=== PATIENT | male | born 1985 | race Caucasian/White ===

== ENCOUNTER 2020-06-04 20:41 | Emergency (ER) | payer MEDICAID ==
[~2020-06-04] VITALS: Ht 190.5 cm; Wt 74.6 kg
[2020-06-04 21:53] LABS: BASOPHILS % (AUTO) 0 % (0-1); EOSINOPHILS % (AUTO) 1 % (1-7); LYMPHOCYTES % (AUTO) 26 % (22-44); MEAN CORPUSCULAR HEMOGLOBIN 29.7 pg (27.5-34.5); MEAN CORPUSCULAR HGB CONC 34.4 g/dL (33.2-36.2); MEAN PLATELET VOLUME 8.7 fL (7.4-10.4); MONOCYTES % (AUTO) 11 % (2-9); NEUTROPHILS % (AUTO) 62 % (42-75); PLATELET COUNT 250 x10^3/uL (130-400); RED BLOOD COUNT 5.42 x10^6/uL (4.38-5.82); RED CELL DISTRIBUTION WIDTH 13.5 % (9.4-14.8)
[2020-06-04 21:58] LABS: ALBUMIN 4.5 g/dL (3.4-5.0); ANION GAP 7 mmol/L (5-15); CALCIUM 9.2 mg/dL (8.5-10.1); CHLORIDE 106 mmol/L (98-107)
[2020-06-04 22:04] LABS: ALANINE AMINOTRANSFERASE 20 U/L (12-78); ALKALINE PHOSPHATASE 81 U/L (45-117); BILIRUBIN,TOTAL 0.8 mg/dL (0.2-1.0); CREATININE 1.12 mg/dL (0.7-1.3); TOTAL PROTEIN 7.7 g/dL (6.4-8.2); TROPONIN I < 0.015 ng/mL (0.000-0.045)
[2020-06-04 22:17] LABS: MD NO
[2020-06-04 23:10] VITALS: BP 130/80
--- NOTE | 2020-06-04 23:10 | NUR ---
PER TRIAGE TECH, PT WAS AWOKE FROM SLEEP IN THE WAITING ROOM AT 2245 AND TRANSFER TO ROOM AT THAT TIME. PT LAYING IN BED, NADN. MENCHACA.
== END 2020-06-04 23:21 | disposition home or self-care (01) ==
LOC: ED 23:19
DX: R56.9 Unspecified convulsions (principal); R07.89 Other chest pain; R94.31 Abnormal electrocardiogram [ECG] [EKG]; Z72.9 Problem related to lifestyle, unspecified
CPT/HCPCS: 36415; 71045; 80053; 84484; 85025; 93005; 99285

== ENCOUNTER 2020-08-20 03:35 | Emergency (ER) | payer MEDICAID ==
[~2020-08-20] VITALS: Ht 190.5 cm; Wt 80.0 kg
[2020-08-20] MEDS ORDERED: ONDANSETRON ODT 4 MG ONE (03:55)
[2020-08-20] MEDS ORDERED: ONDANSETRON ODT 4 MG PO ONE (04:00)
--- NOTE | 2020-08-20 04:04 | NUR ---
pt bib remsa for abdominal pain and nausea, pt reports vomitting three times today. denies any other symptoms. resting on gurney at this time, bed in lwoest, provided warm blankets for comfort, nad, denies additional needs, rails engaged, call light on lap, wctm. pt placed on spo2/bp monitoring, medicated per aug, waiting for lab results.
[2020-08-20 04:19] LABS: ALANINE AMINOTRANSFERASE 22 U/L (12-78); ANION GAP 9 mmol/L (5-15); CHLORIDE 108 mmol/L (98-107)
[2020-08-20 04:22] LABS: ALKALINE PHOSPHATASE 88 U/L (45-117); BASOPHILS % (AUTO) 0 % (0-1); BILIRUBIN,TOTAL 1.6 mg/dL (0.2-1.0); CREATININE 1.19 mg/dL (0.7-1.3); EOSINOPHILS % (AUTO) 0 % (1-7); LYMPHOCYTES % (AUTO) 3 % (22-44); MEAN CORPUSCULAR HEMOGLOBIN 28.8 pg (27.5-34.5); MEAN CORPUSCULAR HGB CONC 34.3 g/dL (33.2-36.2); MEAN PLATELET VOLUME 8.8 fL (7.4-10.4); MONOCYTES % (AUTO) 3 % (2-9); NEUTROPHILS % (AUTO) 94 % (42-75); PLATELET COUNT 228 x10^3/uL (130-400); RED BLOOD COUNT 5.33 x10^6/uL (4.38-5.82); TOTAL PROTEIN 7.2 g/dL (6.4-8.2)
[2020-08-20 04:26] LABS: MD NO
[2020-08-20] MEDS ORDERED: MAALOX/HYOSCYAMINE/LIDOCAINE 45 ML BTL ONE (04:57)
[2020-08-20] MEDS ORDERED: MAALOX/HYOSCYAMINE/LIDOCAINE 45 ML BTL PO ONE (05:00)
--- NOTE | 2020-08-20 05:05 | NUR ---
pt medicated per mar and provided fluids, states "i still dont feel well". rn explained poc to pt, pt appears nad, vss, bed in lowest, rails engaged, call light on lap, wctm.
[2020-08-20 06:01] VITALS: BP 107/74
--- NOTE | 2020-08-20 06:02 | NUR ---
Patient given discharge instructions and they have confirmed that they understand the instructions. Patient ambulatory with steady gait. nad, denies additional questions, provided water per request, provided taxi voucher, no personal belongings left in room after dc.
== END 2020-08-20 06:03 | disposition home or self-care (01) ==
LOC: ED 04:04
DX: K29.00 Acute gastritis without bleeding (principal); R11.2 Nausea with vomiting, unspecified; R51.9 Headache, unspecified; M32.9 Systemic lupus erythematosus, unspecified; Z72.9 Problem related to lifestyle, unspecified
CPT/HCPCS: 36415; 80053; 83690; 85025; 99283; Q0162

== ENCOUNTER 2020-09-09 13:45 | Emergency (ER) | payer MEDICAID ==
[~2020-09-09] VITALS: Ht 190.5 cm; Wt 76.6 kg
--- NOTE | 2020-09-09 14:10 | NUR ---
PT AMBULATED FROM TRIAGE WITH A STEADY GAIT. SOCKS PROVIDED TO PT DUE TO OPEN WOUNDS. PT HERE FOR THOUGHTS OF SUICIDE WITHOUT SPECIFIC PLAN. PT HAS HX OF SI. PT IS VERY POLITE AND PLEASENT. ROOM SECURED, GOWN AND BLANKETS PROVIDED. PT EDUCATED ON NEED FOR UA. WATER PROVIDED TO FACILITATE. AT THIS TIME PROVIDER COMPLETED ASSESMENT AND FRANCINE IS AT BEDSIDE.
--- NOTE | 2020-09-09 14:20 | NUR ---
REPORT TO WOO LEUNG
--- NOTE | 2020-09-09 14:21 | NUR ---
[employer] CONSISTING OF PANTS AND SHIRT PLACED IN BAG AND IN RM 3 BIN
[2020-09-09 14:31] LABS: BASOPHILS % (AUTO) 1 % (0-1); EOSINOPHILS % (AUTO) 1 % (1-7); LYMPHOCYTES % (AUTO) 16 % (22-44); MEAN CORPUSCULAR HEMOGLOBIN 28.7 pg (27.5-34.5); MEAN CORPUSCULAR HGB CONC 33.8 g/dL (33.2-36.2); MEAN PLATELET VOLUME 8.2 fL (7.4-10.4); MONOCYTES % (AUTO) 8 % (2-9); NEUTROPHILS % (AUTO) 75 % (42-75); PLATELET COUNT 253 x10^3/uL (130-400); RED BLOOD COUNT 4.88 x10^6/uL (4.38-5.82); RED CELL DISTRIBUTION WIDTH 13.9 % (9.4-14.8)
[2020-09-09 14:37] LABS: MD NO
[2020-09-09 14:42] LABS: ALBUMIN 3.6 g/dL (3.4-5.0); ANION GAP 7 mmol/L (5-15); CALCIUM 8.6 mg/dL (8.5-10.1); CHLORIDE 110 mmol/L (98-107); CREATININE 0.94 mg/dL (0.7-1.3); SALICYLATE LEVEL < 1.7 mg/dL (2.8-20.0)
--- NOTE | 2020-09-09 14:56 | NUR ---
THROUGHPUT RN: SPOKE W/ SHIN IN [facility] WHO STATES SHE IS WAITING FOR HER PSYCHIATRIST TO ASSESS PT CHART. STATES TO SEND OUT REFERRAL.
[2020-09-09 15:46] LABS: MICROSCOPIC NOT IND
[2020-09-09 15:58] LABS: AMPHETAMINE SCREEN, URINE Negative (Negative); BARBITURATE SCREEN, URINE Negative (Negative); BENZODIAZEPINE SCREEN, URINE Negative (Negative); CANNABINOID SCREEN, URINE Negative (Negative); COCAINE SCREEN, URINE Negative (Negative); METHADONE SCREEN, URINE Negative (Negative); OPIATE SCREEN, URINE Negative (Negative)
--- NOTE | 2020-09-09 16:01 | NUR ---
pt resting in bed. sitter at bedside
--- NOTE | 2020-09-09 17:07 | NUR ---
SPOKE WITH GERMÁN ON U TO REFER PT. PER GERMÁN, "THEY WILL LOOK INTO IT."
--- NOTE | 2020-09-09 17:10 | NUR ---
BREAK RN: PT RESTING IN ROOM. NO ACUTE DISTRESS NOTED. SITTER AT DOOR. WILL CONTINUE TO MONITOR WHILE PRIMARY RN IS ON BREAK.
--- NOTE | 2020-09-09 17:34 | NUR ---
THROUGHPUT RN: [facility], AND [facility].
--- NOTE | 2020-09-09 17:42 | NUR ---
BREAK RN: REPORT GIVEN TO XOCHITL BERKOWITZ
--- NOTE | 2020-09-09 18:05 | NUR ---
THROUGHPUT RN: RBLanre DECLINED PT SECONDARY TO BEING CONSIDERED SELF PAY/FEE FOR SERVICE.
--- NOTE | 2020-09-09 18:16 | NUR ---
PT IN BED NO DISTRESS. ATE MEAL
--- NOTE | 2020-09-09 18:20 | NUR ---
THROUGHPUT RN: [facility] IS CURRENTLY FULL. WILL ASSESS PT FOR ACCEPTANCE TOMORROW.
--- NOTE | 2020-09-09 18:24 | NUR ---
THROUGHPUT RN: SPOKE W/ JOIDE AT [facility] WHO STATES PT WOULD BE SELF PAY FEE FOR SERVICE. DECLINED BY [facility].
--- NOTE | 2020-09-09 18:27 | NUR ---
THROUGHPUT RN: SPOKE W/ ROSANA AT [facility] WHO STATES THEY WILL REVIEW HIS CHART. STATES NOTHING WILL HAPPEN UNTIL TOMORROW.
--- NOTE | 2020-09-09 19:35 | NUR ---
PT IN BED. VSS.
--- NOTE | 2020-09-09 21:27 | NUR ---
SPOKE WITH [facility] SUP REGARDING PT ADMISSION. [facility] CONTACTED MD, AWAITING APPROVAL FOR ADMISSION TO [facility]
--- NOTE | 2020-09-09 23:29 | NUR ---
Pt calm in bed. VS taken, warm blanket given. Pt with no changes. Pt with no requests. Sitter outside room. Will continue to monitor.
--- NOTE | 2020-09-09 23:41 | NUR ---
SPOKE WITH U; U MD HAS REQUESTED TO RE-EVALUATE PT IN MORNING FOR ADMISSION. PT WILL NOT BE ADMITTED TO U AT THIS MOMENT.
--- NOTE | 2020-09-10 00:29 | NUR ---
Pt resting calmly in room. No changes. Pt free of harm. Sitter outside room. Will monitor.
[2020-09-10 03:38] VITALS: BP 111/74
--- NOTE | 2020-09-10 03:39 | NUR ---
Pt calm in room. Flat affect. Denies the need for anything. Pt free of harm. Pt states he still has has feelings of harming himself. Sitter outside room.
--- NOTE | 2020-09-10 06:04 | NUR ---
Pt resting, no changes. Calm in bed. Pt Free of Harm. Sitter outside room.
--- NOTE | 2020-09-10 06:55 | NUR ---
REPORT FROM JUANY, PT SLEEPING
--- NOTE | 2020-09-10 07:47 | NUR ---
PT SLEEPING, SITTER PRESENT. BREAKFAST TRAY ORDERED.
--- NOTE | 2020-09-10 08:49 | NUR ---
GAVE PT MEAL TRAY. SITTER PRESENT
--- NOTE | 2020-09-10 09:45 | NUR ---
PT AMBULATED TO BATHROOM. OFFERED SHOWER, PT REFUSED. SITTER PRESENT
--- NOTE | 2020-09-10 10:27 | NUR ---
THROUGH PUT RN: RECEIVED MESSAGE FROM [facility], "WILL BE ADMITTING HIM" REQUEST COVID SWAB. PRIMARY RN NOTIFIED.
--- NOTE | 2020-09-10 11:17 | NUR ---
RAPID COVID SWAB COMPLETED.
--- NOTE | 2020-09-10 11:47 | NUR ---
REPORT TO KELLY AT [facility]. PT READY FOR TRANSFER
--- NOTE | 2020-09-10 12:03 | NUR ---
[facility] TRANSFERRED W PATIENT. PT TO [facility] VIA WHEELCHAIR
[2020-09-10] MEDS ORDERED: OMEP20CA20 PO (14:21)
[2020-09-10] MEDS ORDERED: LITH450T PO (14:21)
[2020-09-10] MEDS ORDERED: COLC0.6T50 PO (14:21)
[2020-09-10] MEDS ORDERED: QUET200T79 PO (14:21)
== END 2020-09-10 12:05 | disposition other institution (70) ==
LOC: ED 14:57
DX: R45.851 Suicidal ideations (principal); Z20.822 Contact with and (suspected) exposure to COVID-19; F32.9 Major depressive disorder, single episode, unspecified
CPT/HCPCS: 36415; 80048; 80299; 80307; 80320; 80329; 81003; 82040; 85025; 87426; 99285; G0480

== ENCOUNTER 2020-09-10 10:48 | Inpatient (IN) | payer MEDICAID ==
[~2020-09-10] VITALS: Ht 190.5 cm; Wt 74.0 kg
[2020-09-10] MEDS ORDERED: ACETAMINOPHEN 325 MG TABLET PO PRN (11:30)
[2020-09-10] MEDS ORDERED: ONDANSETRON ODT 4 MG PO PRN (11:30)
[2020-09-10] MEDS ORDERED: PLEASE ENTER HEIGHT AND WEIGHT MC SCH (12:30)
[2020-09-10 13:13] VITALS: BP 122/64
[2020-09-10] MEDS ORDERED: LITH450T PO (14:21)
[2020-09-10] MEDS ORDERED: COLC0.6T50 PO (14:21)
[2020-09-10] MEDS ORDERED: OMEP20CA20 PO (14:21)
[2020-09-10] MEDS ORDERED: QUET200T79 PO (14:21)
[2020-09-10] MEDS: LAMOTRIGINE 25 MG TABLET PO SCH (15:42)
[2020-09-10 19:46] VITALS: BP 108/62
[2020-09-10] MEDS: QUETIAPINE 100MG TABLET PO SCH (20:26)
[2020-09-11 07:48] VITALS: BP 106/63
[2020-09-11] MEDS: LAMOTRIGINE 25 MG TABLET PO SCH (08:45)
[2020-09-11 19:59] VITALS: BP 123/84
[2020-09-11] MEDS: QUETIAPINE 100MG TABLET PO SCH (20:29)
[2020-09-12 07:48] VITALS: BP 103/65
[2020-09-12] MEDS: LAMOTRIGINE 25 MG TABLET PO SCH (09:14)
[2020-09-12] MEDS: QUETIAPINE 100MG TABLET PO SCH (20:14)
[2020-09-12 20:20] VITALS: BP 114/85
[2020-09-13 07:45] VITALS: BP 97/59
[2020-09-13] MEDS: LAMOTRIGINE 25 MG TABLET PO SCH (09:30)
[2020-09-13 19:30] VITALS: BP 136/83
[2020-09-13] MEDS: QUETIAPINE 100MG TABLET PO SCH (20:27)
[2020-09-14 07:51] VITALS: BP 128/91
[2020-09-14] MEDS: LAMOTRIGINE 25 MG TABLET PO SCH (09:14)
[2020-09-14] MEDS ORDERED: LAMO25TA9 PO (14:48)
[2020-09-14] MEDS ORDERED: QUET100T PO (14:48)
[2020-09-14 20:27] VITALS: BP 110/79
[2020-09-14] MEDS: QUETIAPINE 100MG TABLET PO SCH (20:47)
[2020-09-15 07:25] VITALS: BP 106/69
[2020-09-15] MEDS: LAMOTRIGINE 25 MG TABLET PO SCH (09:04)
== END 2020-09-15 12:30 | disposition home or self-care (01) | DRG 753 ==
LOC: 3E 12:04
PROVIDERS: ADMIT Psychiatry & Neurology Psychosomatic Medicine; ATTEND Psychiatry & Neurology Psychosomatic Medicine
DX: F31.30 Bipolar disorder, current episode depressed, mild or moderate severity, unspecified (principal); F43.10 Post-traumatic stress disorder, unspecified; Z20.822 Contact with and (suspected) exposure to COVID-19; G47.00 Insomnia, unspecified; K21.9 Gastro-esophageal reflux disease without esophagitis; F41.9 Anxiety disorder, unspecified; R45.851 Suicidal ideations; Z59.0 Homelessness; Z79.899 Other long term (current) drug therapy; Z87.820 Personal history of traumatic brain injury; Z91.5 Personal history of self-harm; Z88.0 Allergy status to penicillin; Z88.1 Allergy status to other antibiotic agents
CPT/HCPCS: 36415; 71045; 80048; 80299; 80307; 80320; 80329; 81003; 82040; 85025; 87426; 93005; 99285; G0480

== ENCOUNTER 2020-10-21 11:55 | Emergency (ER) | payer MEDICAID ==
[~2020-10-21] VITALS: Ht 190.5 cm; Wt 77.0 kg
[~2020-10-21 11:55] MED LIST: COLC0.6T50 PO; LAMO25TA9 PO; LITH450T PO; OMEP20CA20 PO; QUET100T PO; QUET200T79 PO
[2020-10-21 12:00] VITALS: BP 127/76
--- NOTE | 2020-10-21 12:46 | NUR ---
Joe todd in [facility] - 10/21/20 at 1247 by [employer]ING ENGINEER: PT AMBULATORY TO ROOM FROM [employer],
--- NOTE | 2020-10-21 12:47 | NUR ---
AIR TRAFFIC CONTROL OPERATOR: PT NOT IN LOBBY X 1
--- NOTE | 2020-10-21 13:00 | NUR ---
TECHNICAL LEAD: PT NOT IN LOBBY
== END 2020-10-21 13:07 | disposition left against medical advice (07) ==
LOC: ED 13:05
DX: S90.822A Blister (nonthermal), left foot, initial encounter (principal); Z53.21 Procedure and treatment not carried out due to patient leaving prior to being seen by health care provider; X58.XXXA Exposure to other specified factors, initial encounter; Y93.89 Activity, other specified; Y92.89 Other specified places as the place of occurrence of the external cause; Y99.8 Other external cause status

== ENCOUNTER 2020-11-13 21:30 | Emergency (ER) | payer MEDICAID ==
[~2020-11-13] VITALS: Ht 190.5 cm; Wt 78.0 kg
[2020-11-13 21:33] VITALS: BP 133/81
== END 2020-11-14 00:45 | disposition home or self-care (01) ==
LOC: ED 22:00
DX: S83.421A Sprain of lateral collateral ligament of right knee, initial encounter (principal); G40.802 Other epilepsy, not intractable, without status epilepticus; W01.0XXA Fall on same level from slipping, tripping and stumbling without subsequent striking against object, initial encounter; Y93.89 Activity, other specified; Y92.89 Other specified places as the place of occurrence of the external cause; Y99.8 Other external cause status
CPT/HCPCS: 99285